=== PATIENT | male | born 1965 | race Hispanic/Latino ===

== ENCOUNTER 2019-05-13 15:26 | Emergency (ER) | payer SELFPAY ==
[2019-05-13] MEDS ORDERED: MORPHINE 2 MG/ML SYR ONE ×3 (15:36→19:37)
[2019-05-13] MEDS ORDERED: KETOROLAC 30 MG/ML INJ ONE (15:37)
[2019-05-13] MEDS ORDERED: ONDANSETRON 4 MG/2 ML VIAL ONE ×2 (15:37→17:33)
[2019-05-13] MEDS ORDERED: NA CHLORIDE 0.9% 1,000 ML ONE (15:37)
[2019-05-13 15:43] LABS: Absolute Lymphocytes (CBC) 1.6 K/uL (0.7-4.9); Basophils % 0.6 % (0-1.3); Hematocrit 40.5 % (39.6-49.0); Lymphocytes % 24.5 % (15.3-44.8); MPV 7.6 fL (7.6-11.3); RBC Red Blood Cell Count 4.44 M/uL (4.33-5.43)
--- NOTE | 2019-05-13 16:15 | RAD REPORT ---
EXAM DESCRIPTION: CT - Head C Spine Cap Angel Barnes - 05/13/2019 3:49 pm CLINICAL HISTORY: Fall from balcony 12-15 feet above the ground, patient landed on his back COMPARISON: None. TECHNIQUE: Axial [address] head images were obtained. Axial [address] cervical spine images were obtaine d with sagittal and coronal reconstruction images reviewed. During dynamic enhancement of 100mL non-i onic contrast, axial 5 mm images of the chest, abdomen and pelvis were obtained. All CT scans are performed using dose optimization technique as appropriate and may include automated exposure control or mA/KV adjustment according to patient size. FINDINGS: No intracranial hemorrhage, mass or edema. No midline shift or abnormal fluid collection. Mastoid air cells and paranasal sinuses are clear. No skull fracture. CT cervical spine imaging shows normal height. Slight retrolisthesis of C4 on C5. 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 C4-5 and C6-7 disc space narrowing present. Moderate left-side and mild right-sided foraminal stenosis at C6-7. No paraspinal mass or hematoma seen. Central canal detail is inherently l imited. Concerns for traumatic disc herniation or traumatic cord injury can be further addressed with MR imaging. CT chest shows no pneumothorax, pulmonary contusion or pleural fluid collection. No mediastinal hemat alphonse and the aorta and pulmonary arteries are unremarkable. No chest will mass or abnormal axillary fi nding. No displaced rib fracture or other significant bony finding. CT abdomen and pelvis show no injury to solid abdominal viscera. Gallbladder and biliary tree are unr emarkable. No bowel injury or significant finding. No free air, free fluid or abnormal stranding. No urinary bladder abnormality. Very subtle less than 10% wedging of the L1 body. There is a questionable small faint fracture line a long the superior endplate. The patient has degenerative disc disease at T12-L1 and it is possible th e L1 findings are chronic. There is no encroachment into the central canal. No perispinal mass compon ent. No other possible compression fracture changes seen. Left-side pelvic fracture changes are present. Patient has a nondisplaced fracture of the left ischiu m an fracture of the left superior pubic ramus junction with the pubic symphysis. A left sacral ala f racture is suspected but not confirmed. Iliac crest is intact. No proximal femur fracture seen. No ri ght hemipelvis fracture identified. IMPRESSION: Left-sided pelvic fractures are present seen as a nondisplaced fracture of the left isch ium and left superior pubic ramus junction with the pubic symphysis. Left sacral ala fracture is susp ected but not confirmed. Slight wedging of the L1 body is potentially a minimal compression fracture. Patient also has degener ative disc disease at T12-L1. No significant CT Head finding. Prominent for age degenerative change at C6-7. No acute cervical spine finding. No acute traumatic injury to the chest. No traumatic injury to the solid abdominal visceral or bowel. No air, fluid or other acute peritoneal or retroperitoneal process.
[2019-05-13 16:16] LABS: Albumin 3.5 g/dL (3.4-5.0); Bilirubin Direct 0.2 mg/dL (0-0.2); Bilirubin Total 0.7 mg/dL (0.2-1.0); Potassium 3.7 mmol/L (3.5-5.1); Protein, Total 6.7 g/dL (6.4-8.2)
--- NOTE | 2019-05-13 16:43 | EDPHYS ---
Physician Documentation [facility] Name: Vu Hill Age: 54 yrs Sex: Male : 1965 Arrival Date: 05/13/2019 Time: 15:27 Bed 3 Private MD: ED Physician Kameron Carrera HPI: 05/13 16:35 This 54 yrs old Male presents to ER via EMS with complaints of Fall Injury. rosanna 16:35 Details of fall: The patient fell from a height, off a roof, approximately 14 feet. rosanna Onset: The symptoms/episode began/occurred just prior to arrival. Associated injuries: The patient sustained injury to the low back, buttocks and pelvis, decreased range of motion, painful injury, swelling. Severity of symptoms: At their worst the symptoms were moderate, in the emergency department the symptoms are unchanged. The patient has not experienced similar symptoms in the past. Historical: - Allergies: 15:41 No Known Allergies; jl7 - Home Meds: 15:41 None [Active]; jl7 - PMHx: 15:41 None; jl7 - PSHx: 15:41 None; jl7 - Immunization history: Last tetanus immunization: unknown. - Ebola Screening: : No symptoms or risks identified at this time. - Social history:: Smoking status: unknown. ROS: 16:36 Constitutional: Negative for fever, chills, and weight loss, Eyes: Negative for injury, rosanna pain, redness, and discharge, ENT: Negative for injury, pain, and discharge, Neck: Negative for injury, pain, and swelling, Cardiovascular: Negative for chest pain, palpitations, and edema, Respiratory: Negative for shortness of breath, cough, wheezing, and pleuritic chest pain, Abdomen/GI: Negative for abdominal pain, nausea, vomiting, diarrhea, and constipation, : Negative for injury, bleeding, discharge, and swelling, Skin: Negative for injury, rash, and discoloration, Neuro: Negative for headache, weakness, numbness, tingling, and seizure, Psych: Negative for depression, anxiety, suicide ideation, homicidal ideation, and hallucinations, Allergy/Immunology: Negative for hives, rash, and allergies, Endocrine: Negative for neck swelling, polydipsia, polyuria, polyphagia, and marked weight changes, Hematologic/Lymphatic: Negative for swollen nodes, abnormal bleeding, and unusual bruising. 16:36 Back: Positive for pain at rest, pain with movement. 16:36 MS/extremity: Positive for decreased range of motion, pain, of the buttocks and pelvis. Exam: 16:36 Constitutional: This is a well developed, well nourished patient who is awake, alert, rosanna and in no acute distress. Head/Face: Normocephalic, atraumatic. Eyes: Pupils equal round and reactive to light, extra-ocular motions intact. Lids and lashes normal. Conjunctiva and sclera are non-icteric and not injected. Cornea within normal limits. Periorbital areas with no swelling, redness, or edema. ENT: Nares patent. No nasal discharge, no septal abnormalities noted. Tympanic membranes are normal and external auditory canals are clear. Oropharynx with no redness, swelling, or masses, exudates, or evidence of obstruction, uvula midline. Mucous membranes moist. Neck: Trachea midline, no thyromegaly or masses palpated, and no cervical lymphadenopathy. Supple, full range of motion without nuchal rigidity, or vertebral point tenderness. No Meningismus. Chest/axilla: Normal chest wall appearance and motion. Nontender with no deformity. No lesions are appreciated. Cardiovascular: Regular rate and rhythm with a normal S1 and S2. No gallops, murmurs, or rubs. Normal PMI, no JVD. No pulse deficits. Respiratory: Lungs have equal breath sounds bilaterally, clear to auscultation and percussion. No rales, rhonchi or wheezes noted. No increased work of breathing, no retractions or nasal flaring. Abdomen/GI: Soft, non-tender, with normal bowel sounds. No distension or tympany. No guarding or rebound. No evidence of tenderness throughout. Male : Normal genitalia with no discharge or lesions. MS/ Extremity: Pulses equal, no cyanosis. Neurovascular intact. Full, normal range of motion. Neuro: Awake and alert, GCS 15, oriented to person, place, time, and situation. Cranial nerves II-XII grossly intact. Motor strength 5/5 in all extremities. Sensory grossly intact. Cerebellar exam normal. Normal gait. Psych: Awake, alert, with orientation to person, place and time. Behavior, mood, and affect are within normal limits. 16:36 Back: pain, that is moderate, ROM is painful, normal spinal alignment noted, CVA tenderness, that is mild, vertebral tenderness, is appreciated at L2, L3, L4, L5 and sacrum, muscle spasm, is appreciated in the left low back, left mid back, right mid back and right low back. Vital Signs: 15:31 BP 131 / 82; Pulse 65; Resp 19 S; Temp 97(O); Pulse Ox 98.3% on R/A; Weight 79.38 kg jl7 (R); 15:50 BP 110 / 70; Pulse 65; Resp 16 S; Pulse Ox 99% on R/A; jl7 16:36 BP 116 / 76; Pulse 68; Resp 18; Pulse Ox 99% on R/A; Pain 6/10; em 17:00 BP 115 / 75; Pulse 70; Resp 16 S; Pulse Ox 100% on R/A; jl7 17:30 BP 114 / 74; Pulse 68; Resp 16 S; Pulse Ox 100% on R/A; jl7 18:00 BP 111 / 71; Pulse 64; Resp 17 S; Pulse Ox 100% on R/A; jl7 19:11 BP 113 / 74; Pulse 61; Resp 14 S; Pulse Ox 100% on R/A; jl7 19:35 BP 112 / 72; Pulse 61; Resp 17 S; Pulse Ox 98% on R/A; jd3 Carson Coma Score: 15:31 Eye Response: spontaneous(4). Verbal Response: oriented(5). Motor Response: obeys jl7 commands(6). Total: 15. Trauma Score (Adult): 15:31 Eye Response: spontaneous(1); Verbal Response: oriented(1); Motor Response: obeys jl7 commands(2); Systolic BP: > 89 mm Hg(4); Respiratory Rate: 10 to 29 per min(4); Carson Score: 15; Trauma Score: 12 15:50 Eye Response: spontaneous(1); Verbal Response: oriented(1); Motor Response: obeys jl7 commands(2); Systolic BP: > 89 mm Hg(4); Respiratory Rate: 10 to 29 per min(4); Carson Score: 15; Trauma Score: 12 16:36 Eye Response: spontaneous(1); Verbal Response: oriented(1); Motor Response: obeys em commands(2); Systolic BP: > 89 mm Hg(4); Respiratory Rate: 10 to 29 per min(4); Carson Score: 15; Trauma Score: 12 17:00 Eye Response: spontaneous(1); Verbal Response: oriented(1); Motor Response: obeys jl7 commands(2); Systolic BP: > 89 mm Hg(4); Respiratory Rate: 10 to 29 per min(4); Deloris Score: 15; Trauma Score: 12 17:30 Eye Response: spontaneous(1); Verbal Response: oriented(1); Motor Response: obeys jl7 commands(2); Systolic BP: > 89 mm Hg(4); Respiratory Rate: 10 to 29 per min(4); Deloris Score: 15; Trauma Score: 12 19:11 Eye Response: spontaneous(1); Verbal Response: oriented(1); Motor Response: obeys jl7 commands(2); Systolic BP: > 89 mm Hg(4); Respiratory Rate: 10 to 29 per min(4); Carson Score: 15; Trauma Score: 12 MDM: 15:27 Patient medically screened. [facility] 16:37 Data reviewed: vital signs, nurses notes, lab test result(s), radiologic studies, CT rosanna scan, plain films. 05/13 15:32 Order name: Basic Metabolic Panel; Complete Time: 16:33 [facility] 05/13 15:32 Order name: CBC with Diff; Complete Time: 16:33 [facility] 05/13 15:32 Order name: Creatinine for Radiology; Complete Time: 16:33 [facility] 05/13 15:32 Order name: Type And Screen; Complete Time: 16:33 [facility] 05/13 15:32 Order name: LFT's; Complete Time: 16:33 [facility] 05/13 15:32 Order name: Lipase; Complete Time: 16:33 [facility] 05/13 15:32 Order name: CT Traumagram (Head C Spine CAP W Con); Complete Time: 16:33 [facility] 05/13 16:38 Order name: Pelvis XRAY [facility] 05/13 18:39 Order name: ABO/RH no charge EDMS 05/13 15:32 Order name: Labs collected and sent; Complete Time: 17:14 [facility] Administered Medications: 16:00 Drug: TORadol 30 mg Route: IVP; Site: right antecubital; em 16:22 Follow up: Response: No adverse reaction; Pain is unchanged, physician notified em 16:01 Drug: Zofran 4 mg Route: IVP; Site: right antecubital; em 16:22 Follow up: Response: No adverse reaction em 16:03 Drug: NS 0.9% 1000 ml Route: IV; Rate: 1 bolus; Site: right antecubital; em 16:04 Drug: morphine 2 mg Route: IVP; Site: right antecubital; em 16:22 Follow up: Response: No adverse reaction; Pain is unchanged, physician notified em 16:29 Drug: morphine 2 mg {Note: RASS-0.} Route: IVP; Site: right antecubital; em 16:45 Follow up: Response: No adverse reaction; Pain is decreased jl7 17:40 Drug: Zofran 4 mg Route: IVP; Site: right antecubital; em 19:12 Follow up: Response: No adverse reaction jl7 19:40 Drug: morphine 2 mg Route: IVP; Site: right antecubital; jd3 19:50 Follow up: Response: Pain is decreased; RASS: Alert and Calm (0) jd3 Disposition: 05/13/19 16:41 Transfer ordered to [facility]. Diagnosis are Fall (on) (from) other stairs and steps, Multiple fractures of pelvis with stable disruption of pelvic ring - ischium, left superior pubic ramus with pubic ramus, left sacral ala fracture, Wedge compression fracture of first thoracic vertebra. - Reason for transfer: Higher level of care. - Accepting physician is to [facility]. - Condition is Fair. - Problem is new. - Symptoms have improved. Signatures: Dispatcher [employer] EDKameron Wong MD MD cha Munoz, Edgar, RN Donal Black RN RN jl7 Latonia Latif RN RN ea Davies, Jonathon, RN RN jd3 Corrections: (The following items were deleted from the chart) 19:49 16:41 05/13/2019 16:41 Transfer ordered to [facility]. jd3 Diagnosis is Fall (on) (from) other stairs and steps; Multiple fractures of pelvis with stable disruption of pelvic ring - ischium, left superior pubic ramus with pubic ramus, left sacral ala fracture; Wedge compression fracture of first thoracic vertebra. Reason for transfer: Higher level of care. Accepting physician is to [facility]. Condition is Fair. Problem is new. Symptoms have improved. rosanna
--- NOTE | 2019-05-13 16:43 | ER ---
Nurse's Notes [facility] Name: Vu Hill Age: 54 yrs Sex: Male : 1965 Arrival Date: 05/13/2019 Time: 15:27 Bed 3 Private MD: Diagnosis: Fall (on) (from) other stairs and steps;Multiple fractures of pelvis with stable disruption of pelvic ring-ischium, left superior pubic ramus with pubic ramus, left sacral ala fracture;Wedge compression fracture of first thoracic vertebra Presentation: 05/13 15:31 Presenting complaint: EMS states: Tripped and fell backwards off a balcony, 12-15 feet, jl7 landed on back, denies LOC. Care prior to arrival: Cervical collar in place. Placed on backboard. Mechanism of Injury: Fall balcony approximately 15 feet. Trauma event details: Injury occurred in the [facility], Injury occurred: at home. Injury occurred: May 13, 2019 Injury occurred at: 14:30. 15:31 Acuity: NESHA 2 jl7 15:31 Method Of Arrival: EMS: [facility] jl7 15:37 Transition of care: patient was not received from another setting of care. Onset of jl7 symptoms was May 13, 2019 at 14:30. Risk Assessment: Do you want to hurt yourself or someone else? Patient reports no desire to harm self or others. Initial Sepsis Screen: Does the patient meet any 2 criteria? No. Patient's initial sepsis screen is negative. Does the patient have a suspected source of infection? No. Patient's initial sepsis screen is negative. Triage Assessment: 15:30 General: Appears in no apparent distress. uncomfortable, Behavior is calm, cooperative, jl7 appropriate for age. Pain: Complains of pain in back. Neuro: Level of Consciousness is awake, alert, obeys commands, Oriented to person, place, time, situation. Trauma Activation: Alert Physician: ED Physician; Name: Deandre; Notified At: 15:23; Arrived At: 15:23 Physician: General Surgeon; Name: ; Notified At: 15:23; Arrived At: Physician: Radiology; Name: Yara; Notified At: 15:23; Arrived At: 15:24 Physician: Respiratory; Name: ; Notified At: 15:23; Arrived At: Physician: Lab; Name: ; Notified At: 15:23; Arrived At: Historical: - Allergies: 15:41 No Known Allergies; jl7 - Home Meds: 15:41 None [Active]; jl7 - PMHx: 15:41 None; jl7 - PSHx: 15:41 None; jl7 - Immunization history: Last tetanus immunization: unknown. - Ebola Screening: : No symptoms or risks identified at this time. - Social history:: Smoking status: unknown. Screenin:31 Abuse screen: Denies threats or abuse. Denies injuries from another. Tuberculosis jl7 screening: No symptoms or risk factors identified. 19:13 Nutritional screening: No deficits noted. Fall Risk IV access (20 points). Total Jarvis jl7 Fall Scale indicates No Risk (0-24 pts). Primary Survey: 15:31 NO uncontrolled hemorrhage observed. A: The patient is alert. Airway: patent, Oral jl7 cavity: clear. Breathing/Chest: Respiratory pattern: regular, Respiratory effort: spontaneous, unlabored, Chest inspection: symmetrical rise and fall of the chest. Circulation: Skin color: pink, Skin temperature: warm. Disability Alert. Exposure/Environment: All clothing and personal items were removed. Forensic evidence collection is not deemed to be indicated at this time. Items placed in patient belonging bag. There is no evidence of uncontrolled external bleeding. No obvious injuries are noted at this time. A warming method has been applied: A warm blanket has been provided to the patient. 15:45 Reassessment Breathing/Chest Respiratory pattern Regular Respiratory effort Spontaneous jl7 Unlabored Breath sounds Clear Chest inspection Symmetrical. Assessment: 15:26 Reassessment: Dr. Carrera at bedside, spine palpated by Dr. Carrera and backboard jl7 removed. 19:36 Reassessment: report given to EMS. General: Appears in no apparent distress. jd3 uncomfortable, Behavior is calm, cooperative, appropriate for age. Pain: Complains of pain in pelvis Quality of pain is described as sharp, tender. Neuro: Level of Consciousness is awake, alert, obeys commands, Oriented to person, place, time, situation, Denies LOC. Cardiovascular: Denies chest pain, Capillary refill < 3 seconds Patient's skin is warm and dry. Respiratory: Airway is patent Respiratory effort is even, unlabored, Respiratory pattern is regular, symmetrical. GI: Abdomen is round non-distended, Patient currently denies nausea, vomiting. : No signs and/or symptoms were reported regarding the genitourinary system. EENT: No signs and/or symptoms were reported regarding the EENT system. Derm: Skin is intact, Skin is dry, Skin is normal, Skin temperature is warm. Musculoskeletal: Circulation, motion, and sensation intact. Range of motion: limited in left hip. Vital Signs: 15:31 BP 131 / 82; Pulse 65; Resp 19 S; Temp 97(O); Pulse Ox 98.3% on R/A; Weight 79.38 kg jl7 (R); 15:50 BP 110 / 70; Pulse 65; Resp 16 S; Pulse Ox 99% on R/A; jl7 16:36 BP 116 / 76; Pulse 68; Resp 18; Pulse Ox 99% on R/A; Pain 6/10; em 17:00 BP 115 / 75; Pulse 70; Resp 16 S; Pulse Ox 100% on R/A; jl7 17:30 BP 114 / 74; Pulse 68; Resp 16 S; Pulse Ox 100% on R/A; jl7 18:00 BP 111 / 71; Pulse 64; Resp 17 S; Pulse Ox 100% on R/A; jl7 19:11 BP 113 / 74; Pulse 61; Resp 14 S; Pulse Ox 100% on R/A; jl7 19:35 BP 112 / 72; Pulse 61; Resp 17 S; Pulse Ox 98% on R/A; jd3 Deloris Coma Score: 15:31 Eye Response: spontaneous(4). Verbal Response: oriented(5). Motor Response: obeys jl7 commands(6). Total: 15. Trauma Score (Adult): 15:31 Eye Response: spontaneous(1); Verbal Response: oriented(1); Motor Response: obeys jl7 commands(2); Systolic BP: > 89 mm Hg(4); Respiratory Rate: 10 to 29 per min(4); Collins Score: 15; Trauma Score: 12 15:50 Eye Response: spontaneous(1); Verbal Response: oriented(1); Motor Response: obeys jl7 commands(2); Systolic BP: > 89 mm Hg(4); Respiratory Rate: 10 to 29 per min(4); Deloris Score: 15; Trauma Score: 12 16:36 Eye Response: spontaneous(1); Verbal Response: oriented(1); Motor Response: obeys em commands(2); Systolic BP: > 89 mm Hg(4); Respiratory Rate: 10 to 29 per min(4); Collins Score: 15; Trauma Score: 12 17:00 Eye Response: spontaneous(1); Verbal Response: oriented(1); Motor Response: obeys jl7 commands(2); Systolic BP: > 89 mm Hg(4); Respiratory Rate: 10 to 29 per min(4); Deloris Score: 15; Trauma Score: 12 17:30 Eye Response: spontaneous(1); Verbal Response: oriented(1); Motor Response: obeys jl7 commands(2); Systolic BP: > 89 mm Hg(4); Respiratory Rate: 10 to 29 per min(4); Collins Score: 15; Trauma Score: 12 19:11 Eye Response: spontaneous(1); Verbal Response: oriented(1); Motor Response: obeys jl7 commands(2); Systolic BP: > 89 mm Hg(4); Respiratory Rate: 10 to 29 per min(4); Collins Score: 15; Trauma Score: 12 ED Course: 15:27 Patient arrived in ED. hb 15:27 Kameron Carrera MD is Attending Physician. rosanna 15:31 Donal Hutchison, GODFREY is Primary Nurse. jl7 15:31 Patient has correct armband on for positive identification. Placed in gown. Bed in low jl7 position. Call light in reach. Side rails up X2. 15:31 Patient maintains SpO2 saturation greater than 95% on room air. Thermoregulation: warm jl7 blanket given to patient. 15:32 Inserted saline lock: 18 gauge in right antecubital area, using aseptic technique. hb Blood collected. 15:34 Triage completed. jl7 15:37 Arm band placed on right wrist. jl7 15:49 CT Traumagram (Head C Spine CAP W Con) In Process Unspecified. EDMS 16:[address] Carrera with Nelli Rodgers at the [facility]. 16:48 Pelvis XRAY In Process Unspecified. EDMS 16:48 connected the Trauma team oncology specialist for [facility] with Dr. Carrera for eb patient transfer consultation. 16:50 administrative approval given by Niki Rodgers/ patient has been accepted to the [facility] ER / has accepted the patient in transfer /report to be called to [phone]. 19:38 No provider procedures requiring assistance completed. Patient transferred, IV remains jd3 in place. Administered Medications: 16:00 Drug: TORadol 30 mg Route: IVP; Site: right antecubital; em 16:22 Follow up: Response: No adverse reaction; Pain is unchanged, physician notified em 16:01 Drug: Zofran 4 mg Route: IVP; Site: right antecubital; em 16:22 Follow up: Response: No adverse reaction em 16:03 Drug: NS 0.9% 1000 ml Route: IV; Rate: 1 bolus; Site: right antecubital; em 16:04 Drug: morphine 2 mg Route: IVP; Site: right antecubital; em 16:22 Follow up: Response: No adverse reaction; Pain is unchanged, physician notified em 16:29 Drug: morphine 2 mg {Note: RASS-0.} Route: IVP; Site: right antecubital; em 16:45 Follow up: Response: No adverse reaction; Pain is decreased jl7 17:40 Drug: Zofran 4 mg Route: IVP; Site: right antecubital; em 19:12 Follow up: Response: No adverse reaction jl7 19:40 Drug: morphine 2 mg Route: IVP; Site: right antecubital; jd3 19:50 Follow up: Response: Pain is decreased; RASS: Alert and Calm (0) jd3 Intake: 19:35 PO: 0ml; Total: 0ml. jd3 Output: 19:35 Urine: 0ml; Total: 0ml. jd3 Outcome: 16:41 ER care complete, transfer ordered by MD. marte 19:11 Patient's length of stay in the Emergency Department was greater than 2 hours. awaiting jl7 transportationPatient's length of stay extended due to 19:38 Transferred by ground EMS to [facility], Transfer form completed. X-rays sent jd3 w/ patient. 19:38 Condition: stable 19:38 Instructed on the need for transfer, Demonstrated understanding of instructions. 19:49 Patient left the ED. dali Signatures: Dispatcher [employer] Kameron Pavon MD MD cha Munoz, Edgar RN RN Nirmala Erickson RN RN hb Leal, Jahala, RN RN jl7 Davies, Jonathon, RN RN jd3 Botello, Elizabeth eb Corrections: (The following items were deleted from the chart) 15:37 15:31 Care prior to arrival: None. jonny fuller
--- NOTE | 2019-05-13 17:30 | RAD REPORT ---
EXAM DESCRIPTION: RAD - Pelvis - 05/13/2019 4:50 pm CLINICAL HISTORY: Fall, pelvic pain COMPARISON: CT study same date TECHNIQUE: AP imaging of the pelvis was obtained. FINDINGS: AP pelvis image was obtained subsequent to the CT examination. Left ischium and left super ior pubic ramus fractures are not well visualized on plain film. There is no displacement. No other p elvic fractures seen. Proximal femurs are unremarkable. Contrast is present in the bladder. IMPRESSION: Patient is slightly rotated. The known left ischium and left superior pubic rami fractur es are only faintly visible.
[2019-05-13 20:24] VITALS: TEMP 97
[2019-05-13 20:39] VITALS: BP 112/72; O2SAT 98
== END 2019-05-13 19:49 | disposition short-term general hospital (02) ==
LOC: ER 15:26
DX: S32.810A Multiple fractures of pelvis with stable disruption of pelvic ring, initial encounter for closed fracture (principal); S32.10XA Unspecified fracture of sacrum, initial encounter for closed fracture; S22.010A Wedge compression fracture of first thoracic vertebra, initial encounter for closed fracture; W13.2XXA Fall from, out of or through roof, initial encounter; Y93.9 Activity, unspecified; Y92.9 Unspecified place or not applicable
CPT/HCPCS: 36415; 70450; 71260; 72125; 72170; 74177; 80048; 80076; 83690; 85025; 86850; 86900; 86901; 96374; 96375; 99285; J2270; J2405; J7030; Q9967